=== PATIENT | female | born 1995 | race Asian ===

== ENCOUNTER 2016-10-14 02:30 | Observation (INO) | payer OTHER ==
[2016-10-14] MEDS ORDERED: NS 1,000 ML IV ONE (02:35)
[2016-10-14] MEDS ORDERED: ONDANSETRON 4 MG/2 ML VIAL IVP ONE (02:35)
[2016-10-14] MEDS ORDERED: MIDAZOLAM 2 MG/2 ML VIAL IVP ONE (02:39)
--- NOTE | 2016-10-14 02:39 | EDPHY ---
H & P HPI/ROS: HPI CHIEF COMPLAINT: Alcohol intoxication, limited trauma alert, fall downstairs HISTORY OF PRESENT ILLNESS: This patient 20-year-old Female, presents emergency room as a Laurita Bales. She presents as a limited trauma by EMS. She is intoxicated highly with alcohol and yelling and screaming and not following commands. Unable to get her name or date of . According to EMS she fell down a flight of carpeted stairs however the end of the carpeted stairs are hardwood floors. She presents emergency room agitated, combative, and blood coming out of her left ear. Otherwise head to toe trauma exam is unremarkable. She smells of alcohol, she vomited 1 time in the emergency room. She remains in a cervical collar. The history review of systems limited due to patient's clinical state. Past Medical History: Unknown medical Past Surgical History: Unknown surgical Social History: Alcohol this evening unknown other social history Family History: Unknown ROS REVIEW OF SYSTEMS: Limited due to patient's clinical intoxication and possibly trauma state. Exam Constitutional combative, agitated, screaming, triage nursing summary reviewed , vital signs reviewed Eyes normal conjunctivae and sclera, EOMI, PERRLA. Pupils 4 mm min range reactive to light. HENT right TM and ear normal, left TM blood present in the ear canal. Otherwise head and neck exam in cervical collar no obvious trauma to head or neck. No step-offs. moist mucus membranes, no epistaxis, neck supple/ no meningismus, no raccoon eyes. Respiratory clear to auscultation bilaterally, normal breath sounds, no respiratory distress, no wheezing. Cardiovascular rate normal, regular rhythm, no murmur, no edema, distal pulses normal. Gastrointestinal soft, non-tender, no rebound, no guarding, normal bowel sounds, no distension, no pulsatile mass. Genitourinary no CVA tenderness. Musculoskeletal no midline vertebral tenderness, full range of motion, no calf swelling, no tenderness of extremities, no meningismus, good pulses, neurovascularly intact. Skin pink, warm, & dry, no rash, skin atraumatic. Neurologic alert, agitated, aggressive, screaming, moves all extremities Heme/Lymph/Immune no lymphadenopathy. Differential Diagnosis: Includes but is not limited to in a particular order acute alcohol intoxication, closed head injury, intracranial bleed, skull fracture, basilar skull fracture Medical Decision Making: Plan for this patient IV establishment, IV fluid bolus , Versed 2 mg for sedation, plan for CT scan head, neck, chest, abdomen pelvis IV contrast for trauma. Blood draw. Alcohol level. Re-evaluation: 0321AM: CT scans reviewed CT scan of the head and neck shows a subarachnoid hemorrhage, scalp hematoma as well as a skull fracture left mastoid. Includes external auditory canal nondisplaced through the mastoid air cells. CT scan chest abdomen pelvis with IV contrast for trauma negative for acute trauma. 0343AM: I did re-evaluate this patient she is still somewhat agitated. She is at this time sleepy. Maintaining her airway. 0343AM: I will notify Neurosurgery as well as Trauma surgery about this patient 's traumatic injuries. Patient need to be admitted to the ICU for traumatic head bleed. And skull fracture. 0357AM: Spoke with Dr. Keanu Gonzalez with Neurosurgery. He will consult on the patient. Review the films. He understands patient be admitted to the trauma service to the ICU. Final diagnosis, alcohol intoxication, subarachnoid hemorrhage, skull fracture. 0358AM: At this time I did re-evaluate the patient she is moaning and crying. Still protecting her airway. No change of mental state. Source: Patient, EMS Constitutional: Initial Vital Signs Temperature (C) 36.5 C 10/14/16 03:10 Heart Rate 79 10/14/16 03:10 Respiratory Rate 26 H 10/14/16 03:10 Blood Pressure 103/67 10/14/16 03:10 O2 Sat (%) 100 10/14/16 03:10 O2 Delivery Mode Room Air Allergies/Adverse Reactions: No Known Allergies Allergy (Unverified 10/14/16 04:48) Home Medications: Medication Instructions Recorded Acetaminophen [Tylenol ES 500 mg 1,000 mg PO Q8H #0 tab 10/14/16 (*)] Ibuprofen [Motrin (*)] 200 mg PO Q4H PRN #60 tab 10/14/16 HYDROmorphone HCL [Dilaudid Inj 2 2 mg PO Q4H PRN #10 inj 10/15/16 mg/ml (*)] Medical Decision Making - Data Points Laboratory Results: Laboratory Results 10/14/16 02:36 10/14/16 02:36 Medications Given: Discontinued Medications Acetaminophen (Tylenol) 1,000 mg PO Q8H STEFFI Stop: 04/12/17 04:44 Last Admin: 10/15/16 05:28 Dose: 1,000 mg Sodium Chloride (Ns) 1,000 mls @ 0 mls/hr IV ONCE ONE; Wide Open PRN Reason: Protocol Stop: 10/14/16 02:36 Last Admin: 10/14/16 03:48 Dose: 1,000 mls Cefazolin Sodium 1 gm/ (Dextrose) 100 mls @ 200 mls/hr IV EDNOW ONE PRN Reason: Protocol Stop: 10/14/16 04:10 Last Admin: 10/14/16 04:07 Dose: Not Given Cefazolin Sodium/Dextrose (Ancef 1 Gm (Premix)) 50 mls @ 200 mls/hr IV EDNOW ONE PRN Reason: Protocol Stop: 10/14/16 04:05 Last Admin: 10/14/16 03:52 Dose: 50 mls Sodium Chloride (Ns) 1,000 mls @ 100 mls/hr IV CONT STEFFI Stop: 04/12/17 04:44 Last Admin: 10/14/16 17:01 Dose: 1,000 mls Sodium Chloride (Ns) 500 mls @ 0 mls/hr IV ONCE ONE PRN Reason: As Directed Stop: 10/14/16 12:31 Last Admin: 10/14/16 13:19 Dose: 500 mls Sodium Chloride (Ns) 500 mls @ 0 mls/hr IV ONCE ONE PRN Reason: As Directed Stop: 10/14/16 14:01 Last Admin: 10/14/16 14:02 Dose: 500 mls Midazolam HCl (Versed) 2 mg IVP EDNOW ONE Stop: 10/14/16 02:40 Last Admin: 10/14/16 03:42 Dose: Not Given Ondansetron HCl (Zofran) 4 mg IVP EDNOW ONE Stop: 10/14/16 02:36 Last Admin: 10/14/16 03:48 Dose: 4 mg Departure - Departure Disposition: [facility] In[facility] Acute Clinical Impression: Subarachnoid hemorrhage Skull fracture Qualifiers: Encounter type: initial encounter Skull bone/location: base of skull Fracture type: closed Laterality: left Qualified Code(s): S02.102A - Fracture of base of skull, left side, initial encounter for closed fracture Alcohol intoxication Qualifiers: Complication of substance-induced condition: uncomplicated Qualified Code(s): F10.920 - Alcohol use, unspecified with intoxication, uncomplicated Condition: Good
[2016-10-14] MEDS ORDERED: IOPAMIDOL (ISOVUE-300) 100 ML BTL ONE (02:40)
[2016-10-14 02:55] LABS: % IMMATURE GRANULYOCYTES 0.6 % (0.0-1.1); ABSOLUTE IMMATURE GRANULOCYTES 0.06 10^3/uL (0.00-0.10); ADD DIFF? NO; ADD MORPH? NO; ADD SCAN? NO; ATYPICAL LYMPHOCYTE FLAG 10 (0-99); FRAGMENT RBC FLAG 0 (0-99); HEMATOCRIT 37.2 % (38.0-47.0); HEMOGLOBIN 12.6 g/dL (12.6-16.3); LEFT SHIFT FLG 0 (0-99); LIPEMIA HEMOLYSIS FLAG 90 (0-99); MEAN CELL HEMOGLOBIN 31.4 pg (27.9-34.1); MEAN CELL HEMOGLOBIN CONCENTR. 33.9 g/dL (32.4-36.7); MEAN CELL VOLUME 92.8 fL (81.5-99.8); MEAN PLATELET VOLUME 10.8 fL (8.7-11.7); PLATELET CLUMPS FLAG 10 (0-99); PLATELET COUNT 256 10^3/uL (150-400); RED BLOOD CELL COUNT 4.01 10^6/uL (4.18-5.33); RED CELL DISTRIBUTION WIDTH 12.3 % (11.5-15.2)
[2016-10-14 03:04] LABS: PROTIME(PATIENT) 13.1 SEC (12.0-15.0)
[2016-10-14 03:05] LABS: APTT 22.2 SEC (23.0-38.0)
[2016-10-14 03:06] LABS: ANION GAP 20 mEq/L (8-16); CALCIUM 9.6 mg/dL (8.5-10.4); CARBON DIOXIDE 16 mEq/l (22-31); CHLORIDE 112 mEq/L (97-110); CREATININE 0.6 mg/dL (0.6-1.0); ETHANOL SERUM 219 mg/dL (0-10); GLOMERULAR FILTRATION RATE > 60; GLUCOSE 109 mg/dL (70-100); POTASSIUM 3.9 mEq/L (3.5-5.2); SODIUM 148 mEq/L (134-144)
[2016-10-14] MEDS ORDERED: CEFAZOLIN 1 GM/DEXTROSE/50 ML BAG IV ONE (03:50)
--- NOTE | 2016-10-14 04:11 | SOAPPROG ---
Downtime Inpatient MD Late Entry SOAP Note: Patient sp fall down some stairs while intoxicated. positive LOC. Now she is awake and alert and combative. Moving all extremities. Follows commands. GCS estimated: 14 CT: right frontotemporal traumatic sah, left temporal bone fracture a/p: mild chi. Admit to sdu. we will see her in the morning unless her clinical situation declines. there is no need for keppra in this case. if her mentation clears then we may even be able to avoid a followup scan in an injury like this. we will make this decision when we see her in the morning. please call with questions or concerns. -love mei md.
[2016-10-14] MEDS ORDERED: ONDANSETRON 4 MG/2 ML VIAL IVP PRN (04:35)
[2016-10-14 04:54] LABS: COLOR PALE YELLOW; LEUKOCYTE ESTERASE,URINE NEGATIVE (NEGATIVE); NITRITE,URINE NEGATIVE (NEGATIVE)
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
[2016-10-14] MEDS: NS 1,000 ML IV SCH ×3 (05:28→17:01)
[2016-10-14] MEDS: ACETAMINOPHEN 500 MG TAB PO SCH ×4 (05:36→20:10)
[2016-10-14 05:47] LABS: % IMMATURE GRANULYOCYTES 0.5 % (0.0-1.1); ABSOLUTE IMMATURE GRANULOCYTES 0.05 10^3/uL (0.00-0.10); ADD DIFF? NO; ADD MORPH? NO; ADD SCAN? NO; ATYPICAL LYMPHOCYTE FLAG 10 (0-99); FRAGMENT RBC FLAG 0 (0-99); HEMATOCRIT 35.2 % (38.0-47.0); LEFT SHIFT FLG 0 (0-99); LIPEMIA HEMOLYSIS FLAG 90 (0-99); MEAN CELL HEMOGLOBIN 31.7 pg (27.9-34.1); MEAN CELL HEMOGLOBIN CONCENTR. 34.1 g/dL (32.4-36.7); MEAN CELL VOLUME 92.9 fL (81.5-99.8); MEAN PLATELET VOLUME 10.4 fL (8.7-11.7); PLATELET CLUMPS FLAG 10 (0-99); PLATELET COUNT 206 10^3/uL (150-400); RED BLOOD CELL COUNT 3.79 10^6/uL (4.18-5.33); RED CELL DISTRIBUTION WIDTH 12.4 % (11.5-15.2)
[2016-10-14 06:02] LABS: CALCIUM 8.3 mg/dL (8.5-10.4); CARBON DIOXIDE 17 mEq/l (22-31); CHLORIDE 112 mEq/L (97-110); CREATININE 0.5 mg/dL (0.6-1.0); GLOMERULAR FILTRATION RATE > 60; GLUCOSE 113 mg/dL (70-100); SODIUM 145 mEq/L (134-144)
[2016-10-14 06:26] LABS: ANION GAP 16 mEq/L (8-16); POTASSIUM 3.8 mEq/L (3.5-5.2)
--- NOTE | 2016-10-14 10:02 | SOAPPROG ---
Downtime Inpatient MD Late Entry SOAP Note: Patient seen this morning at 816am by Neurosurgery staff. Decreased hearing left ear. Some otorhea. GCS 15. No cervical tenderness. C collar discontinued by Neurosurgery. She can go to the floor. Keep HOB elevated until drainage stops from left ear. Hearing loss is expected but will arrange ENT consult if persists. ENT could see as an outpatient. No further CT scans Needs Speech PT OT evaluation. I suspect discharge tomorrow or saturday. Ok to transfer to the neurosurgery service if trauma prefers this approach. -love mei md
--- NOTE | 2016-10-14 10:23 | GCON ---
[f rep st] CONSULTATION INFORMATION TECHNOLOGY TECHNICIAN CONSULTATION REASON FOR ADMISSION: Alcohol intoxication, status post fall. HISTORY OF PRESENT ILLNESS: The patient is a very pleasant, 20-year-old female from [facility], who p resented after falling down stairs, she was quite intoxicated from alcohol, has no recollection of h er events. She apparently fell down on carpeted stairs, but landed on cement floor, there was loss of conscious at the scene. She was brought to the emergency room, where they found a right frontal subarachnoid hemorrhage, and left mastoid fracture with extension to the external auditory canal and middle ear. In discussion wi th the patient, she states her headache has improved. She still complains of inability to hear out of her left ear. She denies any chest pain, pleuritic type chest pain or angina equivalent. There is no cough or productive sputum. There is no fever, no night sweats. PAST MEDICAL HISTORY: None. PAST SURGICAL HISTORY: None. ALLERGIES: None known to medications. SOCIAL HISTORY: No history of tobacco use. Infrequent, but excessive alcohol use. 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 She is from [facility]. PHYSICAL EXAM: VITAL SIGNS: Blood pressure is 92/47, pulse 87, respirations 21, temperature 36.3, oxygen saturation 95% on room air. GENERAL: She is a well-developed, well-nourished, 20-year-old f emale, who is resting comfortably, in no acute distress. HEENT: Eyes are PERRLA, EOMI. Throat carey ws no erythema or tonsillar hypertrophy. Her left ear is swollen with crusted blood. NECK: Supple . No cervical adenopathy. HEART: Regular rate and rhythm without murmurs, rubs, gallops. LUNGS: Clear to auscultation. No wheeze or rhonchi. ABDOMEN: Soft, nontender. Bowel sounds are present in all 4 quadrants. EXTREMITIES: Show no clubbing, cyanosis, or edema. LABORATORIES: White count 9.4, hemoglobin 12, hematocrit 35, platelet count is 206. INR is 1. Sod ium 145, potassium 3.8, chloride 112, CO2 17, BUN 12, creatinine 0.5, glucose is 113. Urinalysis is negative. Urine tox screen is negative. Alcohol level is 219. IMPRESSION: 1. Alcohol intoxication. 2. Right frontal subarachnoid hemorrhage. 3. Left mastoid fracture with extension to the auditory canal and middle ear. RECOMMENDATIONS: 1. Adequate pain control. 2. Deep vein thrombosis and pulmonary embolus prophylaxis, holding anticoagulation for now. 3. Stress ulcer prophylaxis. 4. PT and OT. 5. Speech therapy to see. 6. Neurosurgery has seen the patient. 7. /[id number]/MODL
--- NOTE | 2016-10-14 10:32 | TRAUMAPN ---
Assessment/Plan: PAD#0 It has been 6 hours since her fall. She is wide awake oriented x3. She c/o decreased hearing on the left (side with mastoid fracture through external canal /middle ear but to objective testing her hearing is only diminished.). She has been seen by Dr. Gonzalez. Neck now cleared. Will continue hydration. Tertiary exam without additional findings. Plan to discharge when otorrhea resolves. Subjective: Tearful but wont explain why. No new complaints Objective: Vital Signs Temp Pulse Resp BP Pulse Ox 36.8 C 88 18 95/48 L 95 10/14/16 08:00 10/14/16 08:00 10/14/16 08:00 10/14/16 08:00 10/14/16 08:00 Laboratory Results 10/14/16 05:30 10/14/16 05:30 10/13/16 10/14/16 10/15/16 05:59 05:59 05:59 Intake Total 1065 Output Total 450 Balance 615 PT 13.1 SEC (12.0-15.0) 10/14/16 02:36 INR 1.00 (0.83-1.16) 10/14/16 02:36 - C-Spine Clearance Cervical Spine Cleared: Yes Provider who Cleared Cervical Spine: Carlos Time Cervical Spine was Cleared: 08:15 Physical Exam - Physical Exam General Appearance: WD/WN, alert, mild distress EENT: other (left otorrhea still bloody but diminished) Neck: non-tender, full range of motion, supple Respiratory: chest non-tender Cardiac/Chest: regular rate, rhythm Abdomen: normal bowel sounds (Thirsty but not yet hungry), non-tender, soft Pelvic Exam: deferred Rectal: deferred Back: Normal inspection (has mid back midline contusion) Skin: normal color, warm/dry Extremities: normal range of motion, non-tender, normal inspection Neuro/Psych: no motor/sensory deficits, alert, normal mood/affect, oriented x 3 Time Spent w/Patient (minutes): 25
--- NOTE | 2016-10-14 11:08 | GCON ---
[f rep st] CONSULTATION NEUROSURGICAL CONSULTATION DATE OF CONSULTATION: 10/14/2016 REASON FOR ADMISSION: Closed head injury. 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 She has amnesia of the ev ent. She was somewhat combative in the emergency department but was admitted to the trauma surgery service after CT scan demonstrated evidence of a head injury and Neurosurgery was consulted. We rev iewed her scan at the time of her admission, and she complained of hearing loss in the left ear. Sh e does have some fluid emanating from the left ear. She was stable overnight in a cervical collar i n the ICU and was seen at 8:16 a.m. this morning by the neurosurgery staff. She was a limited traum a activation this morning at 4:00 a.m. PAST MEDICAL HISTORY: None. PAST SURGICAL HISTORY: None. ALLERGIES: None. SOCIAL HISTORY: Is noted as above. She does not use tobacco or other drugs but does use alcohol. PHYSICAL EXAMINATION: Her blood pressure was 92/47, pulse is 87, respirations were 20, temperature was 36.3. Her eyes were open. She followed commands bilaterally. Verbal was alert and oriented x4 . She could carry on a normal conversation. Cervical collar was removed, and she had full range of motion of her head and neck without any tenderness. She had slight drainage of liquid from the lef t ear and she had decreased hearing in the left ear. There were no facial asymmetries. IMAGING STUDIES: CT scan demonstrates a left temporal skull fracture extending in the middle ear, w ith fluid in the middle ear and mastoid air cells. This is nondisplaced. She also had a traumatic right frontotemporal subarachnoid hemorrhage, without evidence of mass effect. ASSESSMENT: The patient is a 20-year-old, who was intoxicated and fell down the stairs suffering a mild closed head injury, but she does have hearing loss in the left ear with otorrhea from the left ear. We will keep her hospitalized hoping that the otorrhea resolves and we will keep her head of b ed elevated 30-45 degrees. Cervical collar was discontinued by the neurosurgery service on the basi s of a clinical exam and her presenting CT scan of cervical spine was negative. There is no need fo r followup CT scan of the head. I suggest Physical Therapy, Occupational Therapy, Speech evaluation , advancing her diet and she could be transferred to the floor. We would except her on the neurosur valerio service if this was desired by Trauma surgery. We do not suggest discharge from the hospital w leo she has active fluid leaking from the left ear. I have discussed this with the patient and adv ised against drinking alcohol in precarious conditions including around stairwells, also felt she ma y need to consider withdrawal from [facility] for this semester depending on the evaluat ion of Speech, Physical Therapy and Occupational Therapy. It would not be surprising at all for her to have intellectual decline for a few months as she recovers from her head injury. /[id number]/MODL
[2016-10-14] MEDS ORDERED: NS 500 ML IV ONE ×2 (12:30→14:00)
--- NOTE | 2016-10-14 16:52 | ASMTCMCOM ---
CM Note CM Note Notes: 20 year old female from [facility], fell down stairs and admitted for ETOH intoxication, SAH, Skull fx, mastoid fx with involvement to inner ear. Patient is a [employer] student. Patient cleared by Neurosurg, OT and ST. Case Management doesn't anticipate patient having any discharge needs. Date Signed: 10/14/2016 04:51 PM Electronically Signed By:Katherine Cedeño
[2016-10-14] MEDS ORDERED: HYDROmorphONE/DILAUDID 2 MG/ML INJ IVP PRN (22:27)
[2016-10-15] MEDS: ACETAMINOPHEN 500 MG TAB PO SCH (05:28)
[2016-10-15 08:17] VITALS: RESP 16
--- NOTE | 2016-10-15 09:00 | TRAUMAPN ---
Assessment/Plan: PAD#0 It has been 6 hours since her fall. She is wide awake oriented x3. She c/o decreased hearing on the left (side with mastoid fracture through external canal /middle ear but to objective testing her hearing is only diminished.). She has been seen by Dr. Gonzalez. Neck now cleared. Will continue hydration. Tertiary exam without additional findings. Plan to discharge when otorrhea resolves. PAD#1 10/15/2016 Assessment: Slept well. No otorrhea reported. headache improving. Dr. Gonzalez also agrees that she is doing well. Hearing present but still diminished. Plan: Discharge today with follow up with Dr. Gonzalez. Subjective: no complaints Objective: Vital Signs Temp Pulse Resp BP Pulse Ox 36.6 C 64 16 107/68 97 10/15/16 08:00 10/15/16 08:00 10/15/16 08:00 10/15/16 08:00 10/15/16 08:00 Laboratory Results 10/14/16 05:30 10/14/16 05:30 10/14/16 10/15/16 10/16/16 05:59 05:59 05:59 Intake Total 1065 3366 Output Total 450 Balance 615 3366 PT 13.1 SEC (12.0-15.0) 10/14/16 02:36 INR 1.00 (0.83-1.16) 10/14/16 02:36 - C-Spine Clearance Cervical Spine Cleared: Yes Provider who Cleared Cervical Spine: Carlos Time Cervical Spine was Cleared: 08:15 Physical Exam - Physical Exam General Appearance: WD/WN, alert, no apparent distress EENT: other (Old crusting blood in left ear canal.) Neck: non-tender, full range of motion, supple Respiratory: chest non-tender, lungs clear, normal breath sounds Abdomen: normal bowel sounds, non-tender, soft Pelvic Exam: deferred Rectal: deferred Back: Normal inspection Skin: normal color, warm/dry Neuro/Psych: no motor/sensory deficits, alert, normal mood/affect, oriented x 3 Time Spent w/Patient (minutes): 15
--- NOTE | 2016-10-15 09:06 | PDINTPN ---
[facility] [employer] Progress Note Assessment/Plan: Assessment: * Alcohol intoxication * Status post fall * Subarachnoid hemorrhage * Left mastoid fracture with extension to the auditory canal Plan: Patient be discharged home today Follow-up with Neurosurgery Subjective: Sitting up. Resting comfortably. Headache is resolved. Still has difficulty hearing from left ear Objective: Vital Signs Temp Pulse Resp BP Pulse Ox 36.6 C 64 16 107/68 97 10/15/16 08:00 10/15/16 08:00 10/15/16 08:00 10/15/16 08:00 10/15/16 08:00 Laboratory Results 10/14/16 05:30 10/14/16 05:30 10/14/16 10/15/16 10/16/16 05:59 05:59 05:59 Intake Total 1065 3366 Output Total 450 Balance 615 3366 PT 13.1 SEC (12.0-15.0) 10/14/16 02:36 INR 1.00 (0.83-1.16) 10/14/16 02:36 Physical Exam - Physical Exam General Appearance: WD/WN, alert, no apparent distress EENT: PERRL/EOMI Neck: non-tender, full range of motion, supple, normal inspection Respiratory: chest non-tender, lungs clear, normal breath sounds Cardiac/Chest: normal peripheral pulses, regular rate, rhythm Peripheral Pulses: 2+: carotid (R), carotid (L), femoral (R), femoral (L), dorsalis-pedis (R), dorsalis-pedis (L) Abdomen: normal bowel sounds, non-tender, soft Pelvic Exam: deferred Rectal: deferred Back: Normal inspection Skin: normal color, warm/dry Lymphatic: no adenopathy Extremities: normal range of motion, non-tender, normal inspection, normal capillary refill Neuro/Psych: no motor/sensory deficits, alert, normal mood/affect, oriented x 3 ICD10 Worksheet Patient Problems: Problems Problem Status Onset Alcohol intoxication Acute Skull fracture Acute Subarachnoid hemorrhage Acute
--- NOTE | 2016-10-15 09:29 | GDS ---
[f rep st] DISCHARGE SUMMARY DISCHARGE DIAGNOSES: 1. Fall down stairs. 2. Alcohol intoxication (blood alcohol 214). 3. Right frontal subarachnoid bleed. 4. Basal skull fracture involving mastoid, external ear canal, and middle ear with diminished aural acuity. CONDITION AT DISCHARGE: Improved. DISPOSITION: Home. MEDICATIONS: Tylenol 1000 mg every 8 hours. She will take ibuprofen 200 mg every 4 hours as needed for pain, and Dilaudid 2 mg every 4 hours for severe pain. ACTIVITY: She has restricted her activity to gentle walking. She is to shower only and not submerg e her head in water. She is to sleep with head of bed elevated 35 to 40 degrees. She is reporting leakage of fluid from her left ear to Dr. Gonzalez. If middle ear issue persists, Dr. Gonzalez will con tact ENT. The patient is to follow up with Dr. Gonzalez in 2 weeks. HOSPITAL COURSE: The patient was admitted and observed. Her otorrhea resolved approximately 24 khanh rs ago. She has been stable and is comfortable at this time. She is set for discharge. She has be en seen, evaluated, and cleared by Dr. Goznalez. /[id number]/MODL
--- NOTE | 2016-10-15 09:56 | SOAPPROG ---
SOAP Progress Note Assessment/Plan: Assessment: Doing well. Discharge home. We would like to have her come by the office in 2-4 weeks to see how she is doing Keep HOB elevated 30-40% degrees for a few days Return to ER if fluid leaking from left ear. No keppra. Plan: 10/15/16 09:55 Subjective: Doing fine this morning. Hearing still less in the left ear. Ear is dry. Objective: Vital Signs Temp Pulse Resp BP Pulse Ox 36.6 C 64 16 107/68 97 10/15/16 08:00 10/15/16 08:00 10/15/16 08:00 10/15/16 08:00 10/15/16 08:00 Laboratory Results 10/14/16 05:30 10/14/16 05:30 10/14/16 10/15/16 10/16/16 05:59 05:59 05:59 Intake Total 1065 3366 Output Total 450 Balance 615 3366 PT 13.1 SEC (12.0-15.0) 10/14/16 02:36 INR 1.00 (0.83-1.16) 10/14/16 02:36 GCS 15 ICD10 Worksheet Patient Problems: Problems Problem Status Onset Alcohol intoxication Acute Skull fracture Acute Subarachnoid hemorrhage Acute
[2016-10-15 10:00] VITALS: BP 109/61; PULSE 73; TEMP 98.4; O2SAT 98
== END 2016-10-15 10:01 | disposition home or self-care (01) ==
LOC: EDBD 02:30 → INTOOBSV 03:47 → F2N 04:17
PROVIDERS: ADMIT Surgery; ATTEND Surgery
DX: S02.102A Fracture of base of skull, left side, initial encounter for closed fracture (principal); S06.6X0A Traumatic subarachnoid hemorrhage without loss of consciousness, initial encounter; W10.9XXA Fall (on) (from) unspecified stairs and steps, initial encounter; F10.129 Alcohol abuse with intoxication, unspecified; Y90.7 Blood alcohol level of 200-239 mg/100 ml
CPT/HCPCS: 70450; 71260; 72125; 74177; 92523; 92610; 97116; 97161; 97165; 97535; G0378; 80305; 96365; G0480; J0690; J2405; L0172; Q9967